=== PATIENT | female | born 1945 | race Caucasian/White ===

== ENCOUNTER → 2016-11-15 | Outpatient (CLI) | payer MEDICARE, BC ==
[2016-11-15 13:31] LABS: ALT 36 U/L (9-52); AST 18 U/L (14-36); Cholesterol 165 mg/dL (<200); HDL Cholesterol 46 mg/dL (40-60)
== END | disposition home or self-care (01) ==
LOC: LABWHC1 11:42
PROVIDERS: ATTEND Internal Medicine Interventional Cardiology
DX: E78.2 Mixed hyperlipidemia (principal)
CPT/HCPCS: 36415; 80061; 84450; 84460

== ENCOUNTER → 2017-12-14 | Outpatient (CLI) | payer MEDICARE, BC ==
[2017-12-14 10:55] VITALS: BP 178/88; PULSE 62; BMI 27.1
--- NOTE | 2017-12-14 11:43 | P.GSHP ---
History of Present Illness H&P Date: 12/14/17 The patient is a 72-year-old white female who comes in with a complaint of a mammogram after which an ultrasound was performed and the ultrasound revealed at the 8 o'clock position of the right breast and indistinct non-circumscribed irregular mass measuring 0.4 x 0.3 cm in size. It was too small to characterize overall but felt to be a septated debris filled cyst. Benign- appearing subcentimeter lymph nodes in the right axilla were also present. In the left breast for were believed to be cyst were also present. The final recommendation was probably benign finding short interval follow-up precautionary diagnostic bilateral breast mammogram and ultrasound in 6 months time. The mammogram report is being obtained. The patient denies any changes in her breasts. She has had some fullness in the left breast in the upper quadrant area since she was 27 and has had a biopsy of this area in the past. There've been no recent changes in this area. The patient denies any trauma to her breast. She does not have any history of any infection in the breast. The patient has no palpable masses for which she is concerned in either breast. Family history: 1. sister: breast cancer Hormonal History; menarche: 16 : 3, 3 children, first at 20, breast fed: none menopause: total hysterectomy at 38, for endometriosis BCP: 10 years hormones: estrogen for 20 years Past surgery: 1. total hysterctomy, took both ovaries 2. bladder suspension 3. cardiac stent Past Medical History: 1. OH 2010, stent Social History: smoke: none alcohol: weekly drugs: none - Constitutional Constitutional: Denies chills, Denies fever - EENT Eyes: denies blurred vision, denies pain Ears: deny: decreased hearing, tinnitus Ears, nose, mouth and throat: Denies headache, Denies sore throat - Breasts Breasts: bilateral: as per HPI - Cardiovascular Comment: OH in past, high cholesterol Cardiovascular: Reports high blood pressure - Respiratory Respiratory: Denies cough, Denies 7 - Gastrointestinal Gastrointestinal: Denies abdominal pain, Denies diarrhea, Denies nausea, Denies vomiting - Genitourinary (Female) Genitourinary: Denies dysuria, Denies hematuria - Menstruation Menstruation: Reports postmenopausal - Musculoskeletal Comment: arthritis Musculoskeletal: Reports myalgias Musculoskeletal: right: hip pain - Integumentary Integumentary: Denies pruritus, Denies rash - Neurological Neurological: Denies numbness, Denies weakness - Psychiatric Psychiatric: Denies anxiety, Denies depression - Endocrine Endocrine: Denies fatigue, Denies weight change - Hematologic/Lymphatic Comment: baby aspirin - Allergic/Immunologic Allergic/Immunologic: Reports seasonal allergies Past Medical History Additional Past Medical History / Comment(s): heart attack 2010, History of Any Multi-Drug Resistant Organisms: None Reported Past Surgical History: Hysterectomy Smoking Status: Former smoker - Past Family History Father Family Medical History: Congestive Heart Failure (CHF) Mother Family Medical History: Hypertension Sister(s) Family Medical History: Cancer Additional Family Medical History / Comment(s): Breast cancer in sister (Lew ) 2018 Surgical - Exam Vital Signs Pulse BP Pulse Ox 62 178/88 98 12/14/17 10:49 12/14/17 10:49 12/14/17 10:49 - General well developed, well nourished, no distress - Eyes normal ocular movement, no icteric - ENT no hearing loss, no congestion - Neck no masses, trachea midline - Respiratory normal respiratory effort, clear to auscultation - Cardiovascular Rhythm: regular Heart Sounds: normal: S1, S2 - Abdomen Abdomen: soft, non tender, no guarding, no rigid, no rebound - Neurologic no disoriented, no combative - Musculoskeletal normal gait, normal posture - Psychiatric oriented to time, oriented to person, oriented to place, speech is normal, memory intact Breast examination: Right breast: Multiple positional exam fibrocystic changes no dominant masses or nodules of concern Right axilla: No adenopathy of concern Left breast: Multi-positional exam fibrocystic changes no dominant mass or nodule is of concern Left axilla: No adenopathy of concern Results Her sound results reviewed have requested mammogram results from [facility] Assessment and Plan Assessment: Impression/plan: 1. Status post myocardial infarction 2. Hypertension 3. High cholesterol 4. Mammographic/ultrasound abnormality bilateral cysts noted on ultrasound 5. ALLERGY to unknown substance patient takes leg wrapped Plan: 1. Review reported mammogram from [facility] 2. Repeat bilateral mammogram in 6 months time 3. Medical management of medical problems 4. Patient will follow up sooner if she has any questions or concerns Cc: Dr. Mitchell
== END ==
LOC: WWCWWP 10:38
PROVIDERS: ATTEND Surgery
DX: Z53.9 Procedure and treatment not carried out, unspecified reason (principal)

== ENCOUNTER → 2018-09-04 | Outpatient (CLI) | payer MEDICARE, BC ==
--- NOTE | 2018-09-04 10:04 | MM ---
Reason for exam: follow-up at short interval from prior study. Last mammogram was performed 11 months ago. History: Patient is postmenopausal. Family history of breast cancer in sister at age 69. Took estrogen beginning at age 38. Physical Findings: Nurse did not find any significant physical abnormalities on exam. MG 3D Diag Mammo W/Cad DESTINY Bilateral CC and MLO view(s) were taken. Prior study comparison: October 11, 2017, mammogram. The breast tissue is heterogeneously dense. This may lower the sensitivity of mammography. There is a stable 4-5mm mass at 2 o'clock on the left 7cm from nipple corresponding to a probable cyst on ultrasound. Retroareolar x 2 masses measure 3-4mm and are unchanged. No suspicious abnormality. These results were verbally communicated with the patient and result sheet given to the patient on 09/04/18. ASSESSMENT: Probably benign, BI-RAD 3 RECOMMENDATION: Ultrasound of the left breast in 6 months.
--- NOTE | 2018-09-04 10:07 | USB ---
Reason for exam: follow-up at short interval from prior study. History: Patient is postmenopausal. Family history of breast cancer in sister at age 69. Took estrogen beginning at age 38. US Breast BILAT Right complete breast ultrasound includes all four quadrants, the retroareolar region and axilla. Finding demonstrates a 4 x 3 x 4mm oval, benign, possibly lymph node at 10 o'clock and a 4 x 2 x 4mm benign, cystic lesion at the posterior nipple. Left complete breast ultrasound includes all four quadrants, the retroareolar region and axilla. Finding demonstrates a 3 x 2 x 3mm likely cystic lesion too small to characterize at 2 o'clock, smaller that prior and a 3 x 2 x 2mm likely cystic lesion too small to characterize at 4 o'clock. Likely small cysts, 6 month follow up, stable on mammogram. These results were verbally communicated with the patient and result sheet given to the patient on 09/04/18. ASSESSMENT: Probably benign, BI-RAD 3 RECOMMENDATION: Ultrasound of the left breast in 6 months.
== END ==
LOC: RADMAMWWP 07:37
PROVIDERS: ATTEND Surgery
DX: N63.20 Unspecified lump in the left breast, unspecified quadrant (principal); N63.10 Unspecified lump in the right breast, unspecified quadrant; R92.8 Other abnormal and inconclusive findings on diagnostic imaging of breast
CPT/HCPCS: 77066; 76641; G0279; 77062

== ENCOUNTER → 2018-09-04 | Outpatient (CLI) | payer MEDICARE, BC ==
[2018-09-04 16:10] LABS: LDL Cholesterol,Calculated 70.8 mg/dL (0.0-131.0); VLDL Calculation 23.2 mg/dL (5.00-40.00)
== END ==
LOC: LABWHC1 07:45
PROVIDERS: ATTEND Internal Medicine Interventional Cardiology
DX: E78.2 Mixed hyperlipidemia (principal)
CPT/HCPCS: 36415; 80061; 82550; 84450; 84460

== ENCOUNTER → 2021-03-09 | Outpatient (CLI) | payer MEDICARE ==
--- NOTE | 2021-03-10 10:38 | MM ---
Reason for exam: additional evaluation requested from prior study. Last mammogram was performed 2 years and 6 months ago. History: Patient is postmenopausal. Family history of breast cancer in sister at age 69. Took estrogen beginning at age 38. Physical Findings: Nurse did not find any significant physical abnormalities on exam. MG 3D Diag Mammo W/Cad DESTINY Bilateral CC and MLO view(s) were taken. Prior study comparison: September 04, 2018, bilateral MG 3d diag mammo w/cad DESTINY. October 11, 2017, mammogram. The breast tissue is heterogeneously dense. This may lower the sensitivity of mammography. Finding #1: There is a 5 mm irregular mass in the upper quadrant of the right breast. Finding #2: There are typically benign calcifications in both breasts. There is a chronic nodularity bilaterally. These results were verbally communicated with the patient and result sheet given to the patient on 03/09/21. ASSESSMENT: Incomplete: need additional imaging evaluation, BI-RAD 0 RECOMMENDATION: Ultrasound of the right breast.
== END | disposition home or self-care (01) ==
LOC: RADMAMWWP 11:02
PROVIDERS: ATTEND Family Medicine
DX: N63.10 Unspecified lump in the right breast, unspecified quadrant (principal); Z78.0 Asymptomatic menopausal state; Z80.3 Family history of malignant neoplasm of breast; R92.1 Mammographic calcification found on diagnostic imaging of breast
CPT/HCPCS: 77066; G0279; 77062

== ENCOUNTER → 2021-03-11 | Outpatient (CLI) | payer MEDICARE ==
--- NOTE | 2021-03-11 13:45 | USB ---
Reason for exam: additional evaluation requested from abnormal screening. History: Patient is postmenopausal. Family history of breast cancer in sister at age 69. Took estrogen beginning at age 38. US Breast Workup Limited RT Right limited breast ultrasound including focal area of concern, retroareolar and axilla demonstrates a 5 x 2 x 3mm lobular, cystic lesion at 12 o'clock and a 4 x 3 x 4mm lobular, cystic lesion at the posterior nipple. Simple cysts correspond to chronic nodularity on mammogram. These results were verbally communicated with the patient and result sheet given to the patient on 03/11/21. ASSESSMENT: Benign, BI-RAD 2 RECOMMENDATION: Routine screening mammogram of both breasts in 1 year.
== END | disposition home or self-care (01) ==
LOC: RADUSWWP 13:00
PROVIDERS: ATTEND Radiology Diagnostic Radiology
DX: N60.01 Solitary cyst of right breast (principal)

== ENCOUNTER → 2022-02-14 | Outpatient (CLI) | payer MEDICARE ==
[2022-02-14 19:47] LABS: ALT 22 U/L (8-44); AST 14 U/L (13-35); African American GFR (CKD) 64.3 (60.0-200.0); Albumin 4.2 g/dL (3.8-4.9); Albumin/Globulin Ratio 1.68 (1.60-3.17); Alkaline Phosphatase 79 U/L (41-126); Blood Urea Nitrogen 18.3 mg/dL (9.0-27.0); Calcium 10.2 mg/dL (8.7-10.3); Carbon Dioxide 25.2 mmol/L (20.0-27.5); Chloride 102 mmol/L (96-109); Chol/HDL Ratio 4.03 Ratio; Globulin 2.5 g/dL (1.6-3.3); Glucose 104 mg/dL (70-110); LDL Cholesterol,Calculated 105.3 mg/dL (0.0-131.0); Non-African American GFR(CKD) 55.5 (60.0-200.0); Potassium 4.7 mmol/L (3.5-5.5); Sodium 138 mmol/L (135-145); Total Protein 6.7 g/dL (6.2-8.2)
== END | disposition home or self-care (01) ==
LOC: LABWHC1 10:06
PROVIDERS: ATTEND Internal Medicine Interventional Cardiology
DX: E78.2 Mixed hyperlipidemia (principal); I10 Essential (primary) hypertension
CPT/HCPCS: 36415; 80053; 80061

== ENCOUNTER → 2023-01-19 | Outpatient (CLI) | payer MEDICARE ==
--- NOTE | 2023-01-22 07:26 | MM ---
Reason for Exam: Screening (asymptomatic). Last mammogram was performed 1 year(s) and 10 month(s) ago. Patient History: Menarche at age 16. First Full-Term at age 20. Left ovary removed at age 38. Right ovary removed at age 38. Hysterectomy at age 38. Postmenopausal. Estrogen, from age 38 until age 57. Sister had breast cancer, age 69. Risk Values: Althea 5 year model risk: 3.0%. NCI Lifetime model risk: 6.4%. Prior Study Comparison: 10/11/2017 Screening Mammogram, Unknown. 09/04/2018 Bilateral Diagnostic Mammogram, [facility]. 03/09/2021 Bilateral Diagnostic Mammogram, [facility]. Tissue Density: There are scattered fibroglandular densities. Findings: Analyzed By CAD. There is no suspicious group of microcalcifications or new suspicious mass. Benign-appearing calcifications left breast. Overall Assessment: Benign, BI-RAD 2 Management: Screening Mammogram of both breasts in [address] [facility] will attempt to contact patient to return for supplemental views and ultrasound if indicated. Patient should continue monthly self-breast exams. A clinical breast exam by your physician is recommended on an annual basis. This exam should not preclude additional follow-up of suspicious palpable abnormalities. Note on Althea scores and lifetime risk: 1. A Althea score greater than 3% is considered moderate risk. If this is the case, consider specialist referral to assess eligibility for a risk reducing agent. 2. If overall lifetime risk for the development of breast cancer is 20% or higher, the patient may qualify for future screening with alternating mammogram and breast MRI. Electronically signed and approved by: Julian Parish DO
== END | disposition home or self-care (01) ==
LOC: RADMAMWWP 16:07
PROVIDERS: ATTEND Family Medicine
DX: Z12.31 Encounter for screening mammogram for malignant neoplasm of breast (principal); Z78.0 Asymptomatic menopausal state; Z80.3 Family history of malignant neoplasm of breast
CPT/HCPCS: 77063; 77067

== ENCOUNTER → 2023-02-12 | Outpatient (CLI) | payer MEDICARE ==
[2023-02-12 15:31] LABS: Basophils # (A) 0.05 X 10*3/uL (0.00-0.10); Basophils % (A) 0.6 %; Eosinophils # (A) 0.26 X 10*3/uL (0.04-0.35); Eosinophils % (A) 3.3 %; HCT 42.2 % (37.2-46.3); HGB 13.7 g/dL (12.0-15.0); Lymphocytes # (A) 2.23 X 10*3/uL (0.90-5.00); Lymphocytes % (A) 28.6 %; MCH 29.5 pg (27.0-32.0); MCHC 32.5 g/dL (32.0-37.0); MCV 90.9 FL (80.0-97.0); Mean Platelet Volume 10.8 FL (9.5-12.2); Monocytes # (A) 0.86 X 10*3/uL (0.20-1.00); NRBC Per 100 WBC 0 X 10*3/uL (0.00-0.01); Neutrophils # (A) 4.36 X 10*3/uL (1.80-7.70); Platelet Count 322 X 10*3/uL (140-440); RBC 4.64 X 10*6/uL (4.10-5.20); RDW 13.2 % (11.5-14.5)
[2023-02-12 16:03] LABS: ALT 21 U/L (8-44); AST 15 U/L (13-35); Albumin 4.1 g/dL (3.8-4.9); Albumin/Globulin Ratio 1.58 Ratio (1.60-3.17); Alkaline Phosphatase 88 U/L (41-126); BUN/Creat Ratio 20.73 Ratio (12.00-20.00); Blood Urea Nitrogen 22.8 mg/dL (9.0-27.0); Calcium 10.2 mg/dL (8.7-10.3); Carbon Dioxide 21.9 mmol/L (21.6-31.8); Chloride 104 mmol/L (96-109); Chol/HDL Ratio 4.09 Ratio; Globulin 2.6 g/dL (1.6-3.3); Glucose 110 mg/dL (70-110); LDL Cholesterol,Calculated 109.3 mg/dL (0.0-131.0); Sodium 140 mmol/L (135-145); T4, Free (Free Thyroxine) 1.01 ng/dL (0.80-1.80); Total Bilirubin 0.2 mg/dL (0.3-1.2); Total Protein 6.7 g/dL (6.2-8.2)
[2023-02-12 17:06] LABS: Appearance,Urine Clear (Clear); Bilirubin,Urine Negative (Negative); Blood,Urine Negative (Negative); Color,Urine Yellow (Yellow); Ketones,Urine Trace (Negative); Nitrite,Urine Negative (Negative); PH, Urine 5.5; Specific Gravity,Urine 1.024 (1.001-1.030); Urobilinogen,Urine 0.2 E.U./DL
[2023-02-12 17:27] LABS: Bacteria,Urine Trace
== END | disposition home or self-care (01) ==
LOC: LABWHC1 10:08
PROVIDERS: ATTEND Internal Medicine Interventional Cardiology
DX: I10 Essential (primary) hypertension (principal); E78.2 Mixed hyperlipidemia
CPT/HCPCS: 36415; 80053; 80061; 81001; 82306; 83036; 84439; 84443; 85025

== ENCOUNTER → 2024-02-13 | Outpatient (CLI) | payer MEDICARE ==
[2024-02-13 15:35] LABS: ALT 10 U/L (8-44); AST 14 U/L (13-35); Chol/HDL Ratio 4.08 Ratio; LDL Cholesterol,Calculated 114.6 mg/dL (0.0-131.0)
== END | disposition home or self-care (01) ==
LOC: LABWHC1 10:15
PROVIDERS: ATTEND Internal Medicine Interventional Cardiology
DX: E78.2 Mixed hyperlipidemia (principal)
CPT/HCPCS: 36415; 80061; 84450; 84460